=== PATIENT | female | born 1990 | race Caucasian/White ===

== ENCOUNTER 2024-02-10 08:29 | Outpatient (REF) | payer OTHER, SELFPAY ==
--- NOTE | ~2024-02-10 | XR_ITS ---
EXAMINATION: XR KNEE, LEFT CLINICAL INFORMATION: Pain in left knee. COMPARISON: None available. TECHNIQUE: AP standing view of bilateral knees. Ray and lateral views of the left knee. FINDINGS: LEFT KNEE: Moderate joint effusion. Tiny posterior patellar osteophytes. Mild narrowing of the medial compartment. RIGHT KNEE AP standing view only: Mild narrowing of the medial compartment. XR/XR knee LT 3V IMPRESSION: Moderate left knee joint effusion. Mild degenerative changes.
== END 2024-02-10 08:30 | disposition home or self-care (01) ==
LOC: HO.HOSX 08:29
PROVIDERS: Visit Provider Physician Assistant
DX: M25.561 Pain in right knee (principal); M25.562 Pain in left knee; G89.29 Other chronic pain
CPT/HCPCS: 73562; 99202

== ENCOUNTER 2024-02-10 09:51 | Outpatient (AMB) | payer OTHER, SELFPAY ==
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
[2024-02-10 10:24] VITALS: BMI 26.1
== END 2024-02-10 11:25 | disposition home or self-care (01) ==
PROVIDERS: Visit Provider Physician Assistant
DX: M25.561 Pain in right knee (principal); M25.562 Pain in left knee; G89.29 Other chronic pain
CPT/HCPCS: 99203

== ENCOUNTER 2024-04-01 11:53 | Emergency (ER) | payer OTHER, SELFPAY ==
--- NOTE | ~2024-04-01 | XR_ITS ---
EXAMINATION: XR HAND/WRIST, LEFT CLINICAL INFORMATION: Pain. Rule out fracture. COMPARISON: None TECHNIQUE: 4 views of the left hand and wrist. FINDINGS: There is a small avulsion fracture of the proximal phalanx of the fifth finger intra-articular with the PIP joint. No other fracture is seen. Joint spaces are normal. There is adjacent soft tissue swelling. XR/XR hand wrist LT IMPRESSION: Small avulsion fracture of the proximal phalanx of the fifth finger intra-articular with the PIP joint.
[2024-04-01 12:05] VITALS: BP 122/83; PULSE 84; RESP 16; TEMP 37.1; O2SAT 99; BMI 26.2
--- NOTE | 2024-04-01 12:22 | ED.GENADULT ---
HPI - General Adult General Chief complaint: Extremity Problem Stated complaint: broken finger ? Time Seen by Provider: 04/01/24 13:46 Source: patient Mode of arrival: ambulatory Limitations: no limitations History of Present Illness ED Provider: Joe Evans PA-C HPI narrative: 33-year-old female with no past medical history presents to ED for left pinky pain. Patient states finger yesterday was dislocated pitting back in place. Today noticed pain in bluish black bruising. Patient states no other trauma. Finger pain due to playing volleyball yesterday Related Data Previous Rx's ?Medication ?Instructions ?Recorded naproxen 500 mg tablet 500 mg PO BID PRN pain 7 days #14 04/01/24 tabs Allergies Allergy/AdvReac Type Severity Reaction Status Date / Time No Known Allergies Allergy Verified 04/01/24 12:09 [No Known Allergies*] Review of Systems Review of Systems: left middlien finger pain Yes all other systems are reviewed and are negative [facility] Past Medical History Surgical History (Updated 02/10/24 @ 10:20 by JEROME Wolff) History of nasal surgery Hx of section Social History Social History (Updated 02/10/24 @ 10:20 by JEROME Wolff) Patient Tobacco Use Status: Never used Tobacco Advance Directives: No Advance Directives Information Provided: Yes Current occupational status: employed Current occupation: at home Physical Exam ED Vital Signs: Vital Signs - 24 hr 04/01/24 12:05 04/01/24 14:21 Temperature 98.8 F 98.8 F Pulse Rate 84 84 Respiratory Rate 16 16 Blood Pressure 122/83 122/83 Pulse Oximetry 99 99 Oxygen Delivery Method Room Air Room Air BMI result Body Mass Index 26.2 Const General: cooperative, healthy appearing, comfortable, no acute distress, well developed, alert, awake and Physically active Orientation/consciousness: oriented to person, oriented to place, oriented to time and patient oriented x3 HENMT Head: Yes normal to inspection, Yes No palpable skull fracture present, Yes normocephalic, Yes atraumatic and No abrasion Eyes General: appearance normal, both eyes and all related structures Neck Neck: Yes normal visual inspection, Yes full ROM, Yes no lymphadenopathy, Yes no meningeal signs, Yes trachea midline, Yes supple, No anterior neck swelling and No tender Chest Chest palpation & inspection: normal inspection of the chest and normal palpation of entire chest wall Resp Effort & Inspection: normal respiratory effort and able to speak in complete sentences Auscultation: clear to auscultation bilaterally Cardio Jugular venous distension: no JVD Heart sounds: S1 normal heart sound present and S2 normal heart sound present GI Inspection: Yes normal to inspection Palpation (GI): Soft to palpation, not firm, nontender, no guarding and not rigid General: No CVA tenderness and Yes no CVA tenderness Back/Spine/Pelvis Back: no CVA tenderness, No CVA tenderness and No back tenderness Skin General skin exam: no rashes or lesions noted, elasticity normal and turgor normal Neuro General: oriented to person, oriented to place, oriented to time, patient oriented x3, gait normal, tone normal, moves all extremities, Normal light touch and pain sensation, no meningeal signs, no focal motor deficits, CN's II-XI intact bilaterally and normal sensation to monofilament Extrem General: Yes normal to inspection, Yes full ROM and Yes capillary refill normal Hand/finger images: 1. positive for ecchymosis and tenderness on palpation. motor exam limited due to pain. rest of extremities is normal. Motor, neuro, and vascular exam is intact Psych Appearance: grossly normal, well kempt and not disheveled Course Course Course Narrative: RME: Done by JOHN Evans. Patient presents to the ED for left finger pain. Patient states was playing volleyball yesterday and finger was dislocated put it back in place. Patient's finger has ecchymosis positive capillary pills. Motor exam intact but limited due to pain. Was sent for x-ray Medical Decision Making Medical Decision Making MDM Narrative: [age] year female presents to ED for left pinky pain. X-ray shows avulsion fracture of right pinky pain. Negative for any tendon or nerve injury. Patient is placed in a finger splint. Patient informed to follow-up with orthopedic surgeon. Patient explained worrisome signs any firm to the ED immediately Differential Diagnosis Differential Diagnoses: The differential diagnosis associated with the presentation includes (Avulsion fracture) Admission/Observation Consideration of admission/observation: Escalation of care including admission/observation considered Independent Interpretation I performed an independent interpretation of an: Plain X-Ray Radiology Impression Discussion of test interpretation with radiology: I have reviewed the radiologist's reading. Independent Historian Clinical information obtained from an independent historian. History obtained from or confirmed by: Other (Patient) External Record Review External record reviewed: Other (prior visits) Discharge Plan Discharge Clinical Impression: Avulsion fracture of proximal phalanx of finger Patient Disposition: Home, Self-Care Instructions: Finger Fracture (ED) Additional Instructions: Recommend follow-up with orthopedic surgeon. Return to the ED for severe pain, swelling, redness, bluish black discoloration, numbness/tingling, fever, chills, or any other concerning symptoms. Prescriptions: New naproxen 500 mg tablet 500 mg PO BID PRN (Reason: pain) 7 Days Qty: 14 0RF [place] [facility] [place] [facility] [Provider Group] (left fifth finger avulsion fracture) Stand Alone Forms: Work/School Release Interventions: ED Discharge Assessment Last Done: 04/01/24 14:21 Discharge Date/Time: 04/01/24 14:21 Print Language: Colombian
[2024-04-01 14:21] VITALS: BP 122/83; PULSE 84; RESP 16; TEMP 37.1; O2SAT 99
== END 2024-04-01 14:21 | disposition home or self-care (01) ==
PROVIDERS: Emergency Provider Emergency Medicine
DX: S62.617A Displaced fracture of proximal phalanx of left little finger, initial encounter for closed fracture (principal); X58.XXXA Exposure to other specified factors, initial encounter; Y93.68 Activity, volleyball (beach) (court); Y92.9 Unspecified place or not applicable; Y99.9 Unspecified external cause status; M79.645 Pain in left finger(s)
CPT/HCPCS: 73110; 73130; 99282; 99283

== ENCOUNTER 2024-04-16 08:43 | Outpatient (REF) | payer OTHER, SELFPAY ==
--- NOTE | ~2024-04-16 | XR_ITS ---
EXAMINATION: XR HAND, LEFT CLINICAL INFORMATION: Left hand pain COMPARISON: 04/01/2024 TECHNIQUE: PA, lateral, and oblique views of the left hand. FINDINGS: Again seen is a small 1 mm osseous fragment at the dorsomedial aspect of the small finger proximal phalanx at the PIP joint which may correspond to a prior avulsion fracture. This is unchanged as compared to prior. No additional fractures are identified. Alignment appears appropriate. Mild soft tissue swelling at the 4 mm of negative ulnar variance. No new fractures. XR/XR hand LT min 3V IMPRESSION: Unchanged 1 mm osseous fragment at the dorsomedial aspect of the small finger proximal phalanx at the PIP joint which may correspond to a prior avulsion fracture. No new fractures.
== END 2024-04-16 08:44 | disposition home or self-care (01) ==
LOC: HO.HOSX 08:43
PROVIDERS: Visit Provider Physician Assistant
DX: S62.617A Displaced fracture of proximal phalanx of left little finger, initial encounter for closed fracture (principal)
CPT/HCPCS: 73130; 99212

== ENCOUNTER 2024-04-16 10:32 | Outpatient (AMB) | payer OTHER, SELFPAY ==
[2024-04-16 10:34] VITALS: BMI 26.1
--- NOTE | 2024-04-16 10:34 | MHC.OFFVIS ---
Vital Signs 04/16/24 10:34 Height 5 ft 1 in Weight 138 lb BMI 26.1 Intake Visit Reasons: LT hand SF Intake Note: Nasrin a 33 year old right hand dominant female who presents today for an ER follow up of left hand small finger, DOI 03/31/24. Patient reports while playing volleyball her finger was hit with the ball causing her finger to dislocate, her put back in place. She presented to [facility] the following day where xrays were taken and placed in a finger splint. Currently she has intermittent shooting pain that radiates down to her wrist as well as a pulling sensation. States numbness with her arm placed up. Allergies No Known Allergies [No Known Allergies*] Allergy (Verified 04/16/24 10:34) HPI HPI LT hand SF : Details: 33-year-old right hand dominant female who presents to the office today for an ER follow-up of left 5th metacarpal injury. She reports she was playing volleyball when her finger was hit with the ball causing her finger to dislocate and her put it back to place. She was seen at ER the following day where x-rays were performed and she was placed in a finger splint. She currently states she has intermittent shooting pain as well as a pulling sensation in her hand that radiates down to her wrist. She also experiences numbness with putting her arm up. [facility] Surgical History History of nasal surgery Hx of section Social History Patient Tobacco Use Status: Never used Tobacco Current occupational status: employed Current occupation: at home Review of Systems Const All systems reviewed & are unremarkable except as noted in HPI and below Physical Exam Vital Signs: BMI result Body Mass Index 26.1 Extrem Other: Left small finger: Normal to inspection. She does have some swelling at the PIP joint. Mild discomfort with varus and valgus stress testing. She is able to bend 90 degrees at MCP and 45 degrees at PIP however I am able to passively bring her PIP to 90 degrees and DIP to the palmar crease. Office Procedures Fracture Care Fracture Billing Code: Fracture Billing Code Results Reviewed Results Reviewed: Xrays were obtained in the office today and personally reviewed by me show avulsion fragment along the PIP joint of the small finger Assessment & Plan Assessment & Plan (1) Avulsion fracture of proximal phalanx of finger: Code(s): S62.619A - Displaced fracture of proximal phalanx of unspecified finger, initial encounter for closed fracture Category: Medical Plan She will discontinue her immobilizer and work on ROM which I did demonstrated in the office today. She will work on occupational therapy for aggressive ROM and she will aman tape her small finger to the ring finger. I would like to see her back in 3 weeks for a ROM check, sooner if needed. Orders: Orders XR hand LT min 3V Today M79.642 - Pain in left hand OT Evaluation and Treatment Today S62.619A - Displaced fracture of proximal phalanx of unspecified finger, initial encounter for closed fracture Patient Instructions: Scribed for Miriam Lopez PA-C, by Mati Song biomedical equipment technician, on 04/16/2024 at 10:30 AM EST.? I, Miriam Lopez PA-C, have personally reviewed and agree with the information entered by the scribe. Coding Level of Care Code Est Pt Level 3 (25621) Diagnoses Avulsion fracture of proximal phalanx of finger S62.619A CPT Codes Fracture Care - Fracture Billing Code: Fracture Billing Code ([id number])
== END 2024-04-16 11:26 | disposition home or self-care (01) ==
PROVIDERS: Visit Provider Physician Assistant
DX: S62.619A Displaced fracture of proximal phalanx of unspecified finger, initial encounter for closed fracture (principal)
CPT/HCPCS: 99213